=== PATIENT | male | born 1980 | race Caucasian/White ===

== ENCOUNTER 2024-02-21 20:12 | Emergency (ER) | payer SELFPAY ==
[~2024-02-21] VITALS: Ht 172.7 cm; Wt 79.8 kg
[2024-02-21 20:21] VITALS: BP 132/75; PULSE 86; RESP 18; TEMP 98; O2SAT 99
[2024-02-21] MEDS ORDERED: IBUP-2213 PO (21:08)
[2024-02-21] MEDS ORDERED: CEPH-588 PO (21:08)
[2024-02-21] MEDS ORDERED: BACI-418 TP (21:08)
[2024-02-21] MEDS: BACITRACIN OINT 500 UNITS/GM PKT TP ONE (21:32)
[2024-02-21] MEDS: IBUPROFEN 600 MG TAB PO ONE (21:32)
[2024-02-21 21:47] VITALS: BP 132/75; PULSE 86; RESP 18; TEMP 98
[2024-02-21 21:48] VITALS: O2SAT 99
== END 2024-02-21 21:47 | disposition home or self-care (01) ==
LOC: MED 20:12
DX: L60.0 Ingrowing nail (principal); Z79.899 Other long term (current) drug therapy
CPT/HCPCS: 11730; 99283; 99284